=== PATIENT | male | born 1960 | race Caucasian/White ===

== ENCOUNTER 2017-12-15 22:17 | Inpatient (IN) | payer OTHER, SELFPAY ==
[2017-12-16 01:38] VITALS: BMI 21.3
[2017-12-16 03:58] LABS: INR-International Normal Ratio 1.2; PTT 34.9 SEC (22.9-36.1); Prothrombin Time 15.3 SEC (12.0-14.7)
[2017-12-16 04:02] LABS: Uric Acid 4.4 mg/dL (3.5-7.2)
[2017-12-16 04:09] LABS: Band 4 % (5-11); Hemoglobin 7.7 g/dL (14.0-18.0); Lymphocytes 57 % (21-51); MDiff Complete? YES; Mean Corpuscular HGB CONC 33.7 g/dL (32.0-36.0); Mean Corpuscular Hemoglobin 34.8 pg (27.0-31.0); Mean Platelet Volume 9.3 fL (7.4-10.4); Monocytes 8 % (0-10); Neutrophil 31 % (42-75); Nucleated RBC 5 % (0); PLT Morphology Comment Appears Decreased; Platelet Count 41 thou/uL (130-400); RBC Distribution Width 12.7 % (11.5-14.5); Red Blood Cell (RBC) Count 2.22 mill/uL (4.70-6.10); White Blood Cell (WBC) Count 2.9 thou/uL (4.8-10.8)
[2017-12-16 04:24] LABS: HBSAB Concentration 1.14 mIU/mL; HBSAg Index 0.31 S/CO (0-0.99); Hep B Core Total Ab Non-Reactive (NonReactive); Hep B Core Total Index 0.08 S/CO (0-0.79); Hep B Surf AB Non-Reactive (NonReactive); Hep B Surf Ag Non-Reactive S/CO (NonReactive); Hep C IgG Ab Non-Reactive (NonReactive); Hep C Index 0.37 S/CO (0-0.79)
[2017-12-16 04:25] LABS: HIV (1/2) Antibody/Antigen Non-Reactive (NonReactive); HIV 1/2 INDEX 0.21 S/CO (<1.00)
--- NOTE | 2017-12-16 06:49 | HP-2 ---
DATE OF ADMISSION: 12/16/2017 CODE STATUS: FULL. PRIMARY CARE PHYSICIAN: None. ATTENDING: Dr. Ambrocio. RESIDENT: Dr. Gan. CHIEF COMPLAINT: Nosebleed. HISTORY OF PRESENT ILLNESS: This is a 57-year-old male with no past medical history who presented to outside ED, because he went to blow his nose following a sneeze and it would not stop bleeding. The patient applied pressure, put ice pack on it, etc., but after 2-3 hours, it still would not stop ble eding, so he went to the ED. In the ED, they use a Rhino Rocket to stop the bleeding. He has never had anything like this happened before. He never had any abnormal bleeding. He has been getting lar ge bruises from running into doors and things lately. He has also been getting more shortness of andres ath on exertion past few weeks. He gets cuts and scrapes at work often, but reports that they stoppe d bleeding at a normal rate. He has not had any weight changes. He has had night sweats in the past week. He has not gotten ill lately. In the ER, he was given labetalol, Ativan, 1 unit of packed re d blood cells, thiamine and Rhino Rocket was placed in the left nare. PAST MEDICAL HISTORY: None. PAST SURGICAL HISTORY: None. ALLERGIES: No known drug allergies. MEDICATIONS: None. FAMILY HISTORY: None. SOCIAL HISTORY: Smokes 8-10 cigarettes a day for 14 years. Alcohol, drinks 6 beers every other day. Drugs, denies any recent drug use. Reports a remote history of non-IV drug use. Occupation, works as an accounts receivable executive. He is . REVIEW OF SYSTEMS: General: Denies fever, chills, weight changes. Positive for night sweats. Eyes : Denies vision changes. ENT: Denies rhinorrhea, sore throat. Positive for epistaxis. Respirator y: Denies cough, shortness of breath, positive for dyspnea on exertion. Cardiovascular: Denies chest pain, edema. Gastrointestinal: Denies nausea, vomiting, diarrhea, abd ominal pain, GI bleeding. Genitourinary: Denies dysuria, polyuria, hematuria. Skin: Denies rashes or lesions. Positive for bruising. Musculoskeletal: Denies pain or tenderness. Neurologic: Red es weakness, numbness, syncope. PHYSICAL EXAMINATION: VITAL SIGNS: Blood pressure 173/89, pulse 72, respiratory rate 17, temperature 98.1, pulse ox 100% o n room air, current weight 69.4 kilograms. GENERAL: Alert and oriented x3, no acute distress, well-nourished, appropriately interactive. EYES: PERRLA. Extraocular muscles intact. Conjunctival pallor. ENT: Nasal mucosa had a Rhino Rocket in place in the left nare with dried blood. Oropharynx had ulc erated lesion, soft palate about 1.5 cm and several palatal petechiae. NECK: Supple, no lymphadenopathy, no thyromegaly. CARDIOVASCULAR: Regular rate and rhythm. No murmurs, gallops, 2+ radial and pedal pulses. RESPIRATORY: Normal effort, no retractions, clear to auscultation bilaterally. SKIN: Warm and dry. No cyanosis. Spider angioma on the chest, petechiae on the chest, erythematous maculopapular lesions on the legs. ABDOMEN: Soft, nontender to palpation, normoactive bowel sounds. No mass or distention. No hepatos plenomegaly. EXTREMITIES: Clubbing, no cyanosis, no edema. MUSCULOSKELETAL: Structure, tone within normal limits. Full range of motion. NEUROLOGIC: No focal deficits. Sensation within normal limits. GCS 15. PSYCHIATRIC: Appropriate. LABORATORY DATA AND IMAGING: WBC 1.7, hemoglobin 6.9, hematocrit 20.5, MCV 102, platelets 13. Absol [place] neutrophil count 0.46. Sodium 141, potassium 3.7, chloride 108, CO2 23, BUN 14, creatinine 0.79, glucose 112, calcium 9.3, total protein 7.0, albumin 4.2, total bilirubin 0.6, AST 24, ALT 39, alkal ine phosphatase 42. HIV negative. PT 15.3, INR 1.2. EKG, normal sinus rhythm. Chest x-ray, no acu te cardiopulmonary abnormality, probable nipple shadow overlying his right lung base. ASSESSMENT AND PLAN: This is a 57-year-old male who presents with: 1. Pancytopenia. Patient has severe neutropenia with absolute neutrophil count of 0.46 and severe t hrombocytopenia with platelets of 13 and macrocytic anemia with hemoglobin of 6.9. Patient is status post 1 unit packed red blood cells at outside hospital, so this will potentially, maybe workup diffi cult with inability to check iron studies or reticulocyte index, etc. We will give the patient 1 unit of platelets. We will start him on neutropenic diet. I will check a 2-view chest x-ray. We will c heck a CBC with peripheral smear. We will get a PTT and repeat the PT/INR. We will check uric acid, LDH, fecal occult blood, ferritin, folate, B12, hepatitis B, hepatitis C. This could be malignancy versus nutritional versus alcoholism. We will consult Hematology/Oncology in the morning. We will m onitor for any signs of infection or other sources of bleeding. 2. Epistaxis secondary to severe thrombocytopenia, status post Rhino Rocket placement in the ED in [facility]. We will transfuse 1 unit of platelets. We will recheck CBC. Repeat PT, INR and check PTT. 3. Tobacco abuse, counseling for cessation. Nicoderm patch. 4. Alcohol abuse, ASE protocol, counseling for cessation, status post thiamine in ED. 5. Hyperglycemia on random glucoses likely insignificant. We will check a fasting glucose in a.m. 6. Venous thromboembolism prophylaxis, sequential compression devices as the patient has been bleedi ng with severe thrombocytopenia. DISPOSITION: [facility] to [facility], vitamins will be provided. History and physical exam as well as management discussed with Dr. Ambrocio
[2017-12-16] MEDS: Nicotine 14 MG PATCH TD SCH (09:25)
--- NOTE | 2017-12-16 09:49 | RAD ---
TWO VIEWS CHEST: Date: 12-16-17 Provided Clinical History: Pulmonary nodule. FINDINGS: Cardiac and mediastinal silhouette is within normal limits. Lungs appear clear. No pleural fluid or p neumothorax is apparent. IMPRESSION: No evidence for an acute cardiopulmonary process. POS: OFF
--- NOTE | 2017-12-16 10:57 | ULT ---
LIMITED ABDOMINAL ULTRASOUND: INDICATIONS: Assess for organomegaly. TECHNIQUE: A linear exam was performed to assess the liver and spleen only. FINDINGS: The liver has a normal appearance and normal size. The liver measures approximately 17 cm. The spleen has a normal appearance and normal size. Spleen measurements are recorded up to 10 cm. The gallbladder is partially imaged and appears unremarkable. No evidence of biliary duct dilatation identified. IMPRESSION: No evidence of hepatomegaly or splenomegaly. POS: TPC
--- NOTE | 2017-12-16 13:58 | PDOC.EVN ---
Event Note - Event Note Event Note: I personally evaluated the patietn and discussed the management with Dr. Gan. I agree with the history, exam, assessment and plan as documented by the resident. Briefly this is a 57 year old male with no significant past medical history though he has not seen a physician for many years presented to an outside ER with a nosebleed that he was unable to control. States that the nosebleed started after he sneezed. Used pressure, ice packs with no improvement and after few hours sought medical care. In ER rhino-rocket was placed and lab work was significant for pancytopenia including platelets= 13K, WBC 1.7 and Hgb 6.9. Patient states that he has noted some increased bruising over the last few weeks. Denies any hematochezia, hematemesis, abdominal pain, night sweats, weight loss. A/P: 1) Pancytopenia- received 1u pRBCs and 1 pack of platelets; Heme/Onc consulted for further evaluation; possible bone marrow biopsy; repeat plt=41K. 2) Epistaxis- rhino-rocket in place; consult ENT for removal. 3) Ulcerated lesion on upper palate- patient with tobacco history; will have ENT evaluate
--- NOTE | 2017-12-16 17:39 | CON ---
DATE OF CONSULTATION: 12/16/2017 REASON FOR CONSULTATION: Pancytopenia. HISTORY OF PRESENT ILLNESS: Mr. Molina is a pleasant 57-year-old male who presented to the emergency room in [place], [place] for a nosebleed after sneezing. He was unable to stop the bleeding with pressure and ice packs, so sought medical treatment. In the ER, he had a Rhino Rocket placed. His CBC showed a hemoglobin of 6.9. His platelet count was 13,000. He had 1.7 WBCs with 70% lympho cytes and 27% granulocytes. His INR was 1.2. Chemistries were normal. He was transfused 1 unit of packed RBCs and transferred to this facility where he was admitted for pancytopenia. He did receive 1 unit of platelets and they have increased to 41,000. Patient states he was in his usual state of h ealth. He might have had some increased bruising over the last few weeks with also increasing shortn ess of breath. He denies any hematochezia, melena, hemoptysis, hematuria. No abdominal pain, chest pain or weight loss. No rash. He has no diagnosed medical problems. He has not been on any medicat ion. No recent viral illness. Repeat CBC this morning showed a white count of 2.9 with 57% lymphocy basilia, 31% neutrophils and 4% bands, he had 5 nucleated RBCs. Smear was done which showed rare immatur e cells with glass-like morphology. His ferritin, B12 and folate were normal. His HIV was negative as was his hepatitis panel. We were asked to see the patient to assist with diagnosis. PAST MEDICAL HISTORY: None. PAST SURGICAL HISTORY: None. ALLERGIES: No known drug allergies. HOME MEDICATIONS: None. FAMILY HISTORY: No family history of blood disorders. He did have a siiinrj-yg-cks who had leukemia with a stem-cell transplant. SOCIAL HISTORY: , no children, lives with his spouse. 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 Daily smoker, drinks a 6-pack of beer every couple of days. No illicit drug use. REVIEW OF SYSTEMS: Negative except for noted in HPI. PHYSICAL EXAMINATION: VITAL SIGNS: Temperature is 98.5, pulse is 78, respiratory rate is 18, BP is 152/81. He is 97% on r oom air. GENERAL: Well-developed, well-nourished male in no acute distress. HEENT: Normocephalic, atraumatic. Pupils are equal and reactive to light. NECK: Supple. CARDIOVASCULAR: Regular rate and rhythm. LUNGS: Clear. ABDOMEN: Soft, nontender. There is no organomegaly. Bowel sounds are positive. EXTREMITIES: No clubbing, cyanosis or edema. SKIN: No rash. HEMATOLOGIC: There is no petechia or purpura. NEUROLOGIC: Patient is nonfocal. PSYCHIATRIC: The patient is alert and oriented and appropriate. PERTINENT LABORATORY AND X-RAYS: As per noted in HPI. Radiology, his chest x-ray showed no acute pr ocess. He had an abdominal ultrasound which showed no evidence of hepatomegaly or splenomegaly. IMPRESSION: 1. Pancytopenia. 2. Epistaxis secondary to #1. DISCUSSION: Patient's epistaxis has been controlled with the Rhino Rocket. I do believe ENT has bee n consulted for further input. The patient's platelets are stable at this time and he is not having any evidence of bleed. The patient has agreed to a bone marrow biopsy tomorrow. Differential diagno sis includes myelodysplastic syndrome, acute leukemia or myelofibrosis. Further recommendation will be based on the bone marrow results. We will check CBC daily and transfuse p.r.n. All this was expl ained in detail with patient and his . Thank you for the consult.
[2017-12-17 06:01] LABS: Anisocytosis SLIGHT = 6-15 cells (100X) (0-5/hpf); Band 4 % (5-11); Elliptocytes SLIGHT = 2-5 cells (100X) (0-1/hpf); Hemoglobin 8.2 g/dL (14.0-18.0); Lymphocytes 33 % (21-51); MDiff Complete? YES; Mean Corpuscular HGB CONC 34.1 g/dL (32.0-36.0); Mean Corpuscular Hemoglobin 35.3 pg (27.0-31.0); Mean Platelet Volume 12.1 fL (7.4-10.4); Monocytes 10 % (0-10); Myelocyte 1 % (0-0); Neutrophil 52 % (42-75); PLT Morphology Comment Appears Decreased; Platelet Count 29 thou/uL (130-400); RBC Distribution Width 12.6 % (11.5-14.5); Red Blood Cell (RBC) Count 2.31 mill/uL (4.70-6.10); Tear Drops SLIGHT = 2-5 cells (100X) (0-1/hpf)
[2017-12-17] MEDS: Nicotine 14 MG PATCH TD SCH (08:31)
--- NOTE | 2017-12-17 09:28 | PDOC.FM ---
- Subjective Subjective: Pt had no acute events overnight. Denies pain, was seen by ENT and oncology yesterday. Will have bone marrow biopsy today. - Objective Vital Signs & Weight: Vital Signs (12 hours) Temp Pulse Resp BP BP Pulse Ox 12/17/17 08:00 99.0 F 96 18 136/73 96 12/17/17 04:00 99.2 F 94 18 139/75 95 12/17/17 00:00 100.2 F H 106 H 18 131/75 131/75 95 I&O: 12/16/17 12/17/17 12/18/17 06:59 06:59 06:59 Intake Total 350 200 Balance 350 200 Result Diagrams: 12/17/17 04:00 <Orlando Yanes - Last Filed: 12/17/17 09:25> - Objective Vital Signs & Weight: Vital Signs (12 hours) Temp Pulse Resp BP BP Pulse Ox 12/17/17 16:00 100.9 F H 101 H 18 139/74 139/74 97 12/17/17 12:05 98.2 F 88 20 131/74 98 12/17/17 11:36 99.0 F 98 18 122/75 97 12/17/17 08:00 99.0 F 96 18 136/73 136/73 96 I&O: 12/16/17 12/17/17 12/18/17 06:59 06:59 06:59 Intake Total 350 200 240 Balance 350 200 240 Result Diagrams: 12/17/17 04:00 <Abril Ambrocio - Last Filed: 12/17/17 17:49> Phys Exam - Physical Examination Constitutional: NAD HEENT: PERRLA, sclera anicteric rhino rocket in place Respiratory: no wheezing, no rales, clear to auscultation bilateral Cardiovascular: RRR, no significant murmur, no rub Gastrointestinal: soft, non-tender, no distention, positive bowel sounds Musculoskeletal: no edema, pulses present Neurological: non-focal, moves all 4 limbs <Orlando Yanes - Last Filed: 12/17/17 09:25> Dx/Plan (1) Pancytopenia Code(s): D61.818 - OTHER PANCYTOPENIA Status: Acute (2) Epistaxis Code(s): R04.0 - EPISTAXIS Status: Acute - Plan Plan: pt CBC stable transuse pRBCs if hgb <7 platelets if <20 and s/s of bleeding epistaxis, resolved with rhino rocket, to remain in place for at least 3 days ENT consulted, appreciate recs Onc consulted, appreciate recs bone marrow biopsy scheduled for today will f/u with results when available <Orlando Yanes - Last Filed: 12/17/17 09:25> Attending Addendum - Attending Addendum I personally evaluated the patient and discussed the management with Dr. Yanes I agree with the History, Examination, Assessment and Plan documented above with any addition or exceptions noted below- Patient without complaints. Tolerating diet. Tm 100.2 VSS A/P: 1) Pancytopenia- appreciate heme/onc assistance; plan for bone marrow biopsy today. 2) Epistaxis- stable; rhino- rocket in place. <Abril Ambrocio - Last Filed: 12/17/17 17:49>
[2017-12-17] MEDS ORDERED: Midazolam HCl 2 mg/2 ml Vial ONE (10:53)
[2017-12-17] MEDS ORDERED: Fentanyl 100 MCG/2 ML VIAL ONE (10:53)
[2017-12-17] MEDS ORDERED: Fentanyl 100 MCG/2 ML VIAL SLOW IVP SCH (13:00)
[2017-12-17] MEDS ORDERED: Midazolam HCl 2 mg/2 ml Vial SLOW IVP SCH (13:00)
--- NOTE | 2017-12-17 14:01 | CT ---
CT GUIDED BONE MARROW BIOPSY: CONSCIOUS SEDATION: 1 mg Versed, IV. 50 mcg Fentanyl, IV. HISTORY: Pancytopenia. FINDINGS: After explaining the procedure and answering all questions, the patient was placed on the table in pr one position. Left posterior approach to the left iliac bone was planned. Sterile technique, buffer ed local anesthesia, CT guidance, conscious sedation, and a posterior approach were used to carefully advance a 12-gauge bone biopsy needle to the posterior aspect of left iliac bone. 10 cc blood aspir ate was made and submitted to pathology for evaluation. A 2 cm core biopsy was then obtained and sub mitted to pathology. Postprocedure imaging shows no evidence of complication. The patient tolerated the procedure well and was returned in unchanged condition. IMPRESSION: Technically successful CT-guided bone marrow biopsy. Pathology is pending. POS: GWEN
[2017-12-17 15:19] LABS: Folate,Hemolysate 213.5 ng/mL (Not Estab.); Hematocrit 22.3 % (37.5-51.0); RBC Folate Test Component 957 ng/mL (>498)
[2017-12-17] MEDS: Acetaminophen 500 MG TAB PO PRN (16:46)
[2017-12-18 04:55] LABS: Hemoglobin 8.3 g/dL (14.0-18.0); Mean Corpuscular HGB CONC 33.2 g/dL (32.0-36.0); Mean Corpuscular Hemoglobin 34.5 pg (27.0-31.0); Mean Platelet Volume 11.8 fL (7.4-10.4); Platelet Count 22 thou/uL (130-400); RBC Distribution Width 12.4 % (11.5-14.5); Red Blood Cell (RBC) Count 2.41 mill/uL (4.70-6.10); White Blood Cell (WBC) Count 2.6 thou/uL (4.8-10.8)
[2017-12-18 05:18] LABS: Band 3 % (5-11); Elliptocytes SLIGHT = 2-5 cells (100X) (0-1/hpf); Lymphocytes 44 % (21-51); MDiff Complete? YES; Monocytes 9 % (0-10); Myelocyte 1 % (0-0); Neutrophil 43 % (42-75); Nucleated RBC 4 % (0); PLT Morphology Comment Appears Decreased
[2017-12-18] MEDS: Acetaminophen 500 MG TAB PO PRN (06:17)
[2017-12-18] MEDS: Nicotine 14 MG PATCH TD SCH (09:23)
--- NOTE | 2017-12-18 10:36 | PDOC.FM ---
- Subjective Subjective: Pt reports occasional sweats. Fever of 100.9 ovenight that did not persist. No feve greater than 101. Denies chills, weakness, numbness, cp, sob, nvdc. Some drainage from rhinorocket that is clear. No signs of persistent bleeding. - Objective Vital Signs & Weight: Vital Signs (12 hours) Temp Pulse Resp BP BP Pulse Ox 12/18/17 08:00 98.5 F 84 20 127/71 98 12/18/17 07:44 98.5 F 84 20 127/71 98 12/18/17 04:00 99.1 F 85 18 135/75 94 L 12/18/17 00:00 99.2 F 88 18 133/72 96 I&O: 12/17/17 12/18/17 12/19/17 06:59 06:59 06:59 Intake Total 200 370 240 Balance 200 370 240 Result Diagrams: 12/18/17 04:04 <Orlando Yanes - Last Filed: 12/18/17 10:35> - Objective Result Diagrams: 12/18/17 04:04 <Abril Ambrocio - Last Filed: 12/21/17 14:45> Phys Exam - Physical Examination Constitutional: NAD HEENT: PERRLA, moist MMs, sclera anicteric rhinorocket in place Neck: no nodes Respiratory: no wheezing, no rales, no rhonchi, clear to auscultation bilateral Cardiovascular: RRR, no significant murmur, no rub Gastrointestinal: soft, non-tender, no distention, positive bowel sounds Musculoskeletal: no edema, pulses present Neurological: non-focal, normal sensation Skin: no rash <Orlando Yanes - Last Filed: 12/18/17 10:35> Dx/Plan (1) Pancytopenia Code(s): D61.818 - OTHER PANCYTOPENIA Status: Acute (2) Epistaxis Code(s): R04.0 - EPISTAXIS Status: Acute - Plan Plan: ent consulted, will keep rhino rocket in place for now. Appreciate recs concerning pancytopenia, will transfuse platelets if <[id number] or < 20 w/ evidence of bleeding. Ultimately the BM biopsy will provide cause, awaiting results. Heme consulted, appreciate recs Pt has transient fever. Heme consulted, appreciate recs <Orlando Yanes - Last Filed: 12/18/17 10:35> Attending Addendum - Attending Addendum I personally evaluated the patient and discussed the management with Dr. Yanes on 12/18/17. I agree with the History, Examination, Assessment and Plan documented above with any addition or exceptions noted below- Patient without complaints. No further nosebleeds. Tm 100.9 VSS. A/P: 1) Pancytopenia- H/H stable; continue monitoring WBC and platelets. Transfuse for platelets<10K. s/p bone marrow results pending. Appreciate Hematology input. 2) Epistaxis- continue with rhino- rocket. Appreciate ENT recommendations. <Abril Ambrocio - Last Filed: 12/21/17 14:45>
[2017-12-18 16:34] VITALS: BP 129/69; TEMP 99.7
[2017-12-18] MEDS ORDERED: Sodium Chloride 0.65% Nasal 44 ML BOT EA NARE SCH (21:00)
--- NOTE | 2017-12-21 10:35 | DIS-2 ---
DATE OF ADMISSION: 12/16/2017 DATE OF DISCHARGE: 12/18/2017 LOCATION: [place], [place]. RESIDENT PHYSICIAN: Orlando Yanes DO ADMITTING ATTENDING: Abril Ambrocio M.D. DISCHARGE ATTENDING: Abril Ambrocio M.D. COSIGNER: Abril Ambrocio M.D. CONSULTATIONS: Hematology/Oncology, Mago Talamantes APRN. PROCEDURES: 1. Chest x-ray done on 12/16/2017 showed no evidence of acute cardiopulmonary process. 2. Abdominal ultrasound done on 12/16/2017 showed no evidence of hepatomegaly or splenomegaly. 3. Bone biopsy CT done on 12/17/2017 was performed successfully. 4. Bone marrow specimen received on 12/17/2017 revealed acute myeloid leukemia. Cytogenetics studie s are pending. PRIMARY DIAGNOSIS: Acute myeloid leukemia. SECONDARY DIAGNOSES: 1. Pancytopenia. 2. Epistaxis. DISCHARGE MEDICATIONS: None. DISCONTINUED MEDICATIONS: None. HISTORY OF PRESENT ILLNESS/HOSPITAL COURSE: The patient is a 57-year-old male with no known past med ical history, who originally presented to an outside ER in [place] where he was found to be extremely pancytopenic and suffering from an uncontrolled nosebleed. The patient had a Rhinorocket placed wit h adequate hemostasis of the epistaxis. His labs on discharge showed a white blood cell count of 2.6 , hemoglobin of 8.3, hematocrit of 25.1, MCV of 104, and a platelet count of 22,000. While here, the patient was transfused 1 order of platelets. The patient was ultimately seen by Hematology/Oncology . A bone marrow biopsy was performed and unfortunately revealed a diagnosis of acute myeloid leukemi a. The patient was transferred to [place] ER for additional workup and treatment of his acute myelog enous leukemia. The patient was instructed to follow up with a primary care provider in 7-10 days fo llowing discharge. DISPOSITION: The patient left the hospital in a guarded condition. DISCHARGE INSTRUCTIONS: 1. Location: Discharge to [facility] emergency department. 3. Diet: Regular. 4. Activity: Ad yamilex. 5. Followup: Follow up with primary care provider in 7-10 days as well as a [place] studies director/oncologist after treatment at [facility].
== END 2017-12-18 17:10 | disposition short-term general hospital (02) | DRG 835 ==
LOC: ERS 22:17 → T4-B 23:47
PROVIDERS: ADMIT Emergency Medicine; ATTEND Emergency Medicine
PROC: 30233R1 Transfusion of Nonautologous Platelets into Peripheral Vein, Percutaneous Approach (ICD-10-PCS; 2017-12-16)
PROC: 0CJY8ZZ Inspection of Mouth and Throat, Via Natural or Artificial Opening Endoscopic (ICD-10-PCS; 2017-12-16)
PROC: 07DR3ZX Extraction of Iliac Bone Marrow, Percutaneous Approach, Diagnostic (ICD-10-PCS; principal; 2017-12-17)
DX: C92.00 Acute myeloblastic leukemia, not having achieved remission (principal); D61.818 Other pancytopenia; R04.0 Epistaxis; F10.10 Alcohol abuse, uncomplicated; F17.210 Nicotine dependence, cigarettes, uncomplicated; R73.9 Hyperglycemia, unspecified; K12.0 Recurrent oral aphthae
CPT/HCPCS: 20225; 36415; 36430; 71046; 76705; 77002; 82607; 82728; 82746; 82747; 83615; 84550; 85007; 85025; 85027; 85060; 85097; 85610; 85730; 86704; 86706; 86803; 86850; 86900; 86901; 87340; 87389; 88184; 88237; 88305; 88311; 88313; 88341; 88342; 99152; 99153; 99406; A4216; J2250; J3010; P9035